=== PATIENT | female | born 1935 | race Caucasian/White ===

== ENCOUNTER → 2016-12-29 | Outpatient (CLI) | payer OTHER ==
[~2016-12-29] MED LIST: ACETAMINOPHEN PO; ASPIRINEC PO; BETAPACE PO; CENTRUM PO; CIPRO PO; FOSAMAX PO; HCTZ PO; HYDROCHLOROTH12.5 M1 PO; HYDROCODON-ACE1 EAC7 PO; LISINOPRIL PO; LOPRESSOR PO; LOTREL PO; METAMUCIL PO; NORVASC PO; ORUDIS75 M1 PO; PANTOPRAZOLE SO40 MG PO; PHENERGAN PO; SENOKOT S1 TA1 PO; SYNTHROID PO; TOPROL XL PO; XARELTO PO; ZESTRIL10 M1 PO; [UNRECOGNIZED DRUG - OTHER] PO
--- NOTE | ~2016-12-29 | BD1 ---
[facility] A Service of [facility] & [facility] / [facility] RADIOLOGY TEXT RESULTS PATIENT: KADE LEIGH LOCATION: [facility] : 31 UNIT #: [id number] AGE: [address]: NACHO PERKINS SEX: F ORDER DR: [id number] [facility] [place] [address] [place], [place] [address] [id number] O MR#: [id number] Acc #: [id number] NAME: KADE LEIGH : 1935 SEX: F STUDY DATE/TIME: 12/29/2016 13:41 UNIT: [facility] ROOM: STUDY DESCRIPTION: BD Dexa Bone Dens 1+ Site Attending Physician: Nacho Perkins M.D. Referring Physician: Nacho Perkins M.D. Ordering Physician: Staff Doctor Not On Primary Care Physician: Nacho Perkins M.D. MEDICAL IMAGING REPORT This report is preliminary unless electronic signature is present EXAM Bone density spine/hip. DATE OF EXAM 12/29/2016 HISTORY Osteoporosis screening. Postmenopausal. Nonsmoker. TECHNIQUE Bone density scanning performed upper 4 lumbar vertebral segments and proximal left femur in 180 pound, 81-year-old female. COMPARISON 05/02/2012 FINDINGS L1-L4: Total bone mineral density 1.104 g/cm2 for a T-score 0.5 standard deviations above mean for reference population in normal young individuals and a Z-score 3.3 standard deviations above mean for age-matched population. Compared to prior examination, there has been a 5.5% increase in bone mineral density since 2011. LEFT FEMUR: Total bone mineral density 0.899 g/cm2 for a T-score 0.4 standard deviations below mean for a reference population in normal young individuals and a Z-score 1.9 standard deviations above the mean for age-matched population. In left femoral neck, bone density is 0.694 g/cm2 for a T-score 1.4 standard deviations below mean for a reference population in normal young individuals and a Z-score 1.0 standard deviations above the mean for an age-matched population. Using total bone mineral density as a trending value in this region, there has been a 5.7% decrease in bone mineral density in the proximal left femur compared to 2012. [facility] A Service of [facility] RADIOLOGY TEXT RESULTS PATIENT: KADE LEIGH LOCATION: [facility] : 31 UNIT #: [id number] AGE: [address]: NACHO PERKINS SEX: F ORDER DR: IMPRESSION 1. Osteopenia in the left femoral neck. Patient felt to be at increased risk for a fracture. Treatment options may be considered. Continued surveillance is recommended. 2. Trending data suggests 5.5% statistically significant increase in bone mineral density since 2012 in the upper 4 lumbar vertebral segments overall and 5.7% statistically significant decrease in bone mineral density in the proximal left femur since 2012. See details in body of report. Dictated by... Juan Daniel Pradhan M.D. THIS IS AN ELECTRONICALLY VERIFIED REPORT Juan Daniel Pradhan M.D. at 01/08/2017 2:09 PM Lul TD: 12/29/2016 21:23 JOB #: [id number] MEDICAL IMAGING REPORT COPY
== END | disposition home or self-care (01) ==
LOC: CWCC 13:19
DX: Z13.820 Encounter for screening for osteoporosis (principal); M85.88 Other specified disorders of bone density and structure, other site
CPT/HCPCS: 77080